=== PATIENT | female | born 1945 | race Caucasian/White ===

== ENCOUNTER 2024-12-13 18:51 | Emergency (ER) | payer OTHER ==
[~2024-12-13] VITALS: Ht 162.6 cm; Wt 50.0 kg
[2024-12-13 19:42] LABS: Basophils # (auto) 0.1 10 ^3/uL (0-0.2); Basophils % (auto) 1.3 % (0.0-2.0); Eosinophils # (auto) 0.1 10 ^3/uL (0-0.8); Eosinophils % (auto) 1.8 % (0.0-7.0); Hematocrit 37.3 % (36.0-46.0); Hemoglobin 12.3 g/dL (12.2-16.2); Lymphocytes # (auto) 0.8 10 ^3/uL (0.4-5.4); Lymphocytes % (auto) 13.4 % (10.0-50.0); Mean Corpuscular Volume 91.1 fL (80.0-100.0); Monocytes # (auto) 0.6 10 ^3/uL (0-1.3); Monocytes % (auto) 9.9 % (0.0-12.0); Neutrophils # (auto) 4.4 10 ^3/uL (1.6-8.6); Neutrophils % (auto) 73.6 % (37.0-80.0); Nucleated Red Blood Cells % 0.1 %; Platelet Count (auto) 543 10^3/uL (140-450); Red Cell Distribution Width 14.2 % (11.8-14.3)
[2024-12-13 19:46] VITALS: PULSE 83; RESP 14; O2SAT 96
[2024-12-13 19:56] LABS: Alanine Aminotransferase 12 U/L (7-40); Anion Gap 10 (5-15); Aspartate Aminotransferase 18 U/L (13-40); BUN/Creatinine Ratio 23.1 (10.0-20.0); Blood Urea Nitrogen 12 mg/dL (9-23); Calcium 9.2 mg/dL (8.7-10.4); Chloride 101 mmol/L (98-107); Lipase 29 U/L (12-53); Sodium 142 mmol/L (136-145); Total Protein 6.1 g/dL (5.7-8.2)
[2024-12-13 19:57] LABS: Bilirubin, Total 0.7 mg/dL (0.2-1.0)
[2024-12-13 20:03] LABS: Alkaline Phosphatase 158 U/L (46-116); Carbon Dioxide 31 mmol/L (20-31); Glucose 126 mg/dL (74-106); Potassium 2.7 mmol/L (3.5-5.1)
[2024-12-13] MEDS: SODIUM CHLORIDE 0.9% 1,000 ML IV ONE (20:15)
[2024-12-13] MEDS: POTASSIUM EFFERVESENT TAB 25 MEQ PO ONE (21:05)
[2024-12-13 21:17] LABS: Urine Bacteria None Seen /hpf (None Seen)
[2024-12-13] MEDS: POTASSIUM CHL 20MEQ/100ML 100 ML IV SCH (21:33)
--- NOTE | 2024-12-13 21:40 | ED.PDOC ---
HPI (NEURO) HPI Comments 79y F who presents to the ED via EMS for chief complaint of failure to thrive. Per EMS, pt daughter called and wanted pt evaluated due to increasing weakness and anorexia for the past few weeks. Pt has noted history of dementia and is ax0x2 is baseline. Pt denies any specific complaints or concerns. Pt otherwise denies any other symptoms at this time. Patient is very lean and approaching cachectic. Chief Complaint: Failure to Thrive Time Seen by MD: 21:39 Reviewed Notes: Nurses Notes, Medications, Allergies Information Source: Patient, Relative (Child), Emergency Med Personnel Mode of Arrival: EMS Severity: Moderate Dizziness/Weakness Severity: Unable to do activities Headache Severity: Moderate Timing: Weeks Duration: Since onset Prehospital treatment: None Onset: At rest Symptoms: Weakness Past Medical History PAST MEDICAL HISTORY: Denies Surgical History: Denies all surgeries [employer] OFFICER History: No Pertinent [employer] OFFICER History Family History Family History: Reviewed,noncontributory to illness, No family hx of Cancer, No family hx of DM, No family hx of Heart radhames, No family hx of HTN, No family hx ofKidney radhames, No family hx of Liver radhames, No family hx of Lung radhames, No family hx of Stroke Social History Smoker: Non-Smoker Alcohol: Denies ETOH Use Drugs: Denies Drug Use Lives In: Home Constitutional: reports: fatigue, malaise, weakness; denies: chills, diaphoresis, fever, sweats, others EENTM: denies: blurred vision, double vision, ear bleeding, ear discharge, ear drainage, ear pain, ear ringing, eye pain, eye redness, hearing loss, mouth pain, mouth swelling, nasal discharge, nose bleeding, nose congestion, nose pain, photophobia, tearing, throat pain, throat swelling, voice changes, others Respiratory: denies: cough, hemoptysis, orthopnea, SOB at rest, shortness of breath, SOB with excertion, stridor, wheezing, others Cardiovascular: denies: chest pain, dizzy spells, diaphoresis, Dyspnea on exertion, edema, irregular heart beat, left arm pain, lightheadedness, palpitations, PND, syncope, others Gastrointestinal: denies: abdomen distended, abdominal pain, blood streaked bowels, constipated, diarrhea, dysphagia, difficulty swallowing, hematemesis, melena, nausea, poor appetite, poor fluid intake, rectal bleeding, rectal pain, vomiting, others Genitourinary: denies: abnormal vagina bleeding, burning, dyspareunia, dysuria, flank pain, frequency, hematuria, incontinence, pain, , vagina discharge, urgency, others Neurological: denies: dizziness, fainting, headache, left sided numbness, left sided weakness, numbness, paresthesia, pre-existing deficit, right sided numbness, right sided weakness, seizure, speech problems, tingling, tremors, weakness, others Musculoskeletal: denies: back pain, gout, joint pain, joint swelling, muscle pain, muscle stiffness, neck pain, others Integumetry: denies: bruises, change in color, change in hair/nails, dryness, laceration, lesions, lumps, rash, wounds, others Allergic/Immunocompromised: denies: Difficulty Healing, Frequent Infections, Hives, Itching, others Hematologic/Lymphatic: denies: anemia, blood clots, easy bleeding, easy bruising, swollen glands, others Endocrine: denies: excessive hunger, excessive sweating, excessive thirst, excessive urination, flushing, intolerance to cold, intolerance to heat, unexplained weight gain, unexplained weight loss, others Psychiatric: denies: anxiety, bipolar disorder, depression, hopeless, panic disorder, schizophrenia, sleepless, suicidal, others Unable to Obtain due to: Dementia All Other Systems: Reviewed and Negative Physical Exam General Appearance: Mild Distress (Patient does not appear to be in distress but has some anxiety as she is unaware of why she has been brought to the facility. Patient is very lean and nearly cachectic.), Normal HEENT: Normal ENT Inspection, Pharynx Normal, TMs Normal Neck: Full Range of Motion, Non-Tender, Normal, Normal Inspection Respiratory: Chest Non-Tender, Lungs Clear, No Accessory Muscle Use, No Respiratory Distress, Normal Breath Sounds Cardiovascular: No Edema, No JVD, No Murmur, No Gallop, Normal Peripheral Pulses, Regular Rate/Rhythm Breast Exam: Deferred Gastrointestinal: No Organomegaly, Non Tender, No Pulsatile Mass, Normal Bowel Sounds, Soft Genitalia: Deferred Pelvic: Deferred Rectal: Deferred Extremities: NOT DONE Neurologic: NOT DONE Cerebellar Function: NOT DONE Reflexes: NOT DONE Skin: Dry, Normal Color, Warm Lymphatic: No Adenopathy Was a procedure done? Was a procedure done?: No Differential Diagnosis (SZ) General Weakness: Anemia, Dehydration, Electrolyte imbalance, Encephalopathy, Hypoglycemia, Hypotension, Hypovolemia, Myocardial infarction, Renal failure, Other (failure to thrive) X-Ray, Labs, Meds, VS Vital Signs Date Time Temp Pulse Resp B/P (MAP) Pulse Ox O2 Delivery O2 Flow Rate FiO2 12/13/24 22:40 85 14 146/71 12/13/24 21:58 67 12/13/24 20:00 72 12 149/85 (106) 95 12/13/24 19:46 97.7 83 14 165/75 (105) 96 97.7 12/13/24 19:46 83 14 96 Room Air* 0 21 12/13/24 19:21 97.4 103 20 168/81 (110) 99 97.4 Lab Test 12/13/24 20:30 12/13/24 19:21 Range/Units Urine Color Light-yellow Yellow Urine Clarity Clear Clear Urine pH 7.0 5.0-9.0 Urine Specific [place] 1.015 1.001-1.035 Urine Protein Negative Negative Urine Ketones 1+ H Negative Urine Blood 1+ H Negative /uL Urine Nitrite Negative Negative Urine Bilirubin Negative Negative Urine Urobilinogen 4 H Negative mg/dL Urine Leukocyte Esterase Trace Negative /uL Urine RBC 5 0 - 4 /hpf Urine Microscopic WBC 1 0-5 /HPF Urine Squamous Epithelial Cells Few <5 /hpf Urine Amorphous Crystals Few None Seen /hpf Urine Bacteria None seen None Seen /hpf Urine Glucose Normal Normal mg/dL White Blood Count 6.0 4.4-10.8 10^3/uL Red Blood Count 4.10 4.0-5.20 10^6/uL Hemoglobin 12.3 12.2-16.2 g/dL Hematocrit 37.3 36.0-46.0 % Mean Corpuscular Volume 91.1 80.0-100.0 fL Mean Corpuscular Hemoglobin 30.0 28.0-32.0 pg Mean Corpuscular Hemoglobin Concent 33.0 32.0-36.0 g/dL Red Cell Distribution Width 14.2 11.8-14.3 % Platelet Count 543 H 140-450 10^3/uL Mean Platelet Volume 8.1 6.9-10.8 fL Neutrophils (%) (Auto) 73.6 37.0-80.0 % Lymphocytes (%) (Auto) 13.4 10.0-50.0 % Monocytes (%) (Auto) 9.9 0.0-12.0 % Eosinophils (%) (Auto) 1.8 0.0-7.0 % Basophils (%) (Auto) 1.3 0.0-2.0 % Neutrophils # (Auto) 4.4 1.6-8.6 10 ^3/uL Lymphocytes # (Auto) 0.8 0.4-5.4 10 ^3/uL Monocytes # (Auto) 0.6 0-1.3 10 ^3/uL Eosinophils # (Auto) 0.1 0-0.8 10 ^3/uL Basophils # (Auto) 0.1 0-0.2 10 ^3/uL Nucleated Red Blood Cells 0.1 % Sodium Level 142 136-145 mmol/L Potassium Level 2.7 L 3.5-5.1 mmol/L Chloride Level 101 98-107 mmol/L Carbon Dioxide Level 31 20-31 mmol/L Anion Gap 10 5-15 Blood Urea Nitrogen 12 9-23 mg/dL Creatinine 0.52 L 0.550-1.02 mg/dL Glomerular Filtration Rate Calc 93 >90 mL/min BUN/Creatinine Ratio 23.1 H 10.0-20.0 Serum Glucose 126 H 74-106 mg/dL Lactic Acid Level 1.2 0.4-2.0 mmol/L Calcium Level 9.2 8.7-10.4 mg/dL Total Bilirubin 0.7 0.2-1.0 mg/dL Aspartate Amino Transferase (AST) 18 13-40 U/L Alanine Aminotransferase (ALT) 12 7-40 U/L Alkaline Phosphatase 158 H 46-116 U/L Troponin I High Sensitivity 12 </=34 ng/L Total Protein 6.1 5.7-8.2 g/dL Albumin 4.0 3.2-4.8 g/dL Lipase 29 12-53 U/L Current Medications Medications (Trade) Dose Ordered Sig/Emely Route Start Time Stop Time Status Last Admin Sodium Chloride 1,000 ml @ 150 mls/hr Q6H40M ONCE IV 12/13/24 19:00 12/14/24 01:39 12/13/24 20:15 Potassium Bicarbonate (Klor-Con/Ef) 25 meq ONCE ONCE PO 12/13/24 21:00 12/13/24 21:01 DC 12/13/24 21:05 Potassium Chloride 100 ml @ 50 mls/hr Q2H IV 12/13/24 21:00 12/14/24 00:59 12/13/24 21:33 Acetaminophen/ Hydrocodone Bitart ([place] 5/325MG Tab) 1 tab ONCE ONCE PO 12/13/24 21:30 12/13/24 21:31 DC 12/13/24 21:42 Hydromorphone HCl (Dilaudid Injection) 0.5 mg ONCE ONCE IV 12/13/24 22:45 12/13/24 22:46 DC 12/13/24 22:40 X-Ray, Labs, Meds, VS Comment All studies performed in the ED were evaluated by me personally. Serum laboratories were remarkable for a hypokalemic state. Patient received potassium. Chest x-ray was unremarkable for any acute consolidation or intrapulmonary concerns. Mild cardiomegaly appreciated. I will contact [facility] and discussed with the patient's failure to thrive concerns. Spoke with a Dr. Cheung at [facility]. Advised him of patient presentation as well as laboratory and imaging results. He agreed to accept the patient is a transfer. . Time of 1ST Reevaluation: 21:56 Reevaluation 1ST: Improved Consultation: PCP Patient Education/Counseling: Diagnosis, Treatment, Other (pt has dementia) Family Education/Counseling: Diagnosis, Treatment Departure 1 Departure Time of Disposition: 21:56 Impression: Primary Impression: Hypokalemia Additional Impressions: Failure to thrive in adult Anorexia Disposition: 02 SHORT TERM HOSPITAL Condition: Fair Discharged With: Self, Relative Critical Care Note Critical Care Time?: No Stability Stability form required: No Heart Score Heart Score: Heart Score Response (Comments) Value History N/A 0 EKG N/A 0 Age N/A 0 Risk Factors N/A 0 Troponin N/A 0 Total 0 I personally scribed for ANJU MARK PAC ([email or web address]) on 12/13/24 at 21:40. Electronically submitted by Liam Herrera ([email or web address]). ANJU MARK PAC December 13, 2024 21:40
[2024-12-13] MEDS: HYDROcodone-ACET 5/325MG TAB PO ONE (21:42)
[2024-12-13 21:43] LABS: Urine Amorphous Crystal FEW /hpf (None Seen); Urine Blood 1+ /uL (Negative); Urine Clarity Clear (Clear); Urine Color Light-Yellow (Yellow); Urine Protein, UAD Negative (Negative); Urine Specific Gravity 1.015 (1.001-1.035); Urine Squamous Epithelial Cell FEW /hpf (<5); Urine Urobilinogen 4 mg/dL (Negative); Urine WBC 1 /HPF (0-5)
--- NOTE | 2024-12-13 21:47 | DVH ---
CHEST RADIOGRAPH Indication: Shortness of breath Technique: Single frontal view of the chest was obtained COMPARISON: None FINDINGS: Lines and Tubes: None Lungs: Clear Pleura: No effusion. No pneumothorax. Cardiomediastinal contours: Mild cardiomegaly IMPRESSION: No acute disease. Mild cardiomegaly.
[2024-12-13] MEDS: HYDROmorphone HCL 2 MG/ML VL/or syr IV ONE (22:40)
[2024-12-14 02:52] VITALS: TEMP 98.1; O2SAT 95
[2024-12-14 02:56] VITALS: BP 145/80; PULSE 70; RESP 14
[2024-12-14] MEDS: HYDROmorphone HCL 2 MG/ML VL/or syr IV ONE (02:56)
--- NOTE | 2024-12-14 06:26 | ECG ---
[facility] Test Date: 2024-12-13 Test Time: 21:58:56 Pat Name: ORVILLE MCKINLEY Department: ER Room: Gender: F Project Leader: NEO : 1945 Requested By: ANJU MARK Order Number: [id number] Reading MD: Ezequiel Leyva Measurements Intervals [place] Rate: 67 P: 73 TN: 132 QRS: 21 QRSD: 133 T: 46 QT: 445 QTc: 470 Interpretive Statements Sinus rhythm Atrial premature complexes Left atrial enlargement Nonspecific intraventricular conduction delay Electronically Signed On 12-17-2024 12:00:04 PDT by Ezequiel Leyva Please click the below link to view image of tracing.
== END 2024-12-14 03:47 | disposition short-term general hospital (02) ==
LOC: ER 18:51 → EDBD 18:51 → ER 12-14 03:02
DX: E87.6 Hypokalemia (principal); R62.7 Adult failure to thrive; R63.0 Anorexia
CPT/HCPCS: 36415; 71045; 80053; 81001; 83605; 83690; 84484; 85025; 93005; 96361; 96365; 96366; 96375; 96376; 99285; J1171; J3480; J7030